=== PATIENT | female | born 1945 | race Caucasian/White ===

== ENCOUNTER 2017-03-21 15:06 | Emergency (ER) | payer MEDICARE, BC ==
[~2017-03-21] VITALS: Ht 170.2 cm; Wt 93.0 kg
[~2017-03-21 15:06] MED LIST: ASPI81TA82 PO; ATOR20TA PO; BIOT5000 PO; CALC.25 PO; CO Q100C9 PO; FA-8800C2 PO; FERR1TAB20 PO; INVE1.5T PO; MAPA500T PO; METO25 PO; PROT40TA PO; REST30CA PO; SERO300T PO; SERT100 PO; SUCR1TAB PO; SYNT137T PO; VITA20003 PO
[2017-03-21 15:33] VITALS: BP 131/63; PULSE 74; RESP 16; TEMP 98.5; O2SAT 97
[2017-03-21] MEDS ORDERED: SERO200T PO (16:14)
[2017-03-21] MEDS ORDERED: REST30CA PO (16:14)
[2017-03-21] MEDS ORDERED: LEVO.15 PO (16:14)
[2017-03-21] MEDS ORDERED: ZOLO100T PO (16:14)
[2017-03-21] MEDS ORDERED: METO25TA3 PO (16:14)
[2017-03-21] MEDS ORDERED: OMEP40CA2 PO (16:14)
[2017-03-21] MEDS ORDERED: ATOR20TA15 PO (16:14)
[2017-03-21] MEDS ORDERED: PALI1TAB PO (16:14)
[2017-03-21] MEDS ORDERED: ICOS1CAP PO (16:14)
--- NOTE | 2017-03-21 16:14 | PD ---
HPI Chief Complaint: Fall Time Seen by Provider: 15:53 Travel History International Travel<30 days: No Contact w/Intl Traveler<30days: No Traveled to known affect area: No History of Present Illness HPI This patient complains of injuries from a fall. Duration 2 hours. Symptoms severity is moderate. She tripped and fell into a glass sliding door. She struck her forehead. No LOC. She does have headache and neck pain. She also complains of pain in the right mid upper arm and left hand. Symptoms have no alleviating factors. Denies blood thinners. PFSH Past Medical History AAA: Yes (4.4cm) Arthritis: Yes Asthma: Yes Anxiety: Yes Depression: Yes Cancer: Yes (colon/thyroid) Cardiac Catheterization: Yes (2014, no stents) Chemotherapy: Yes Chest Pain: Yes Diminished Hearing: Yes (left [place]) Hypertension: Yes Radiation Therapy: Yes Renal Failure: Yes Sleep Apnea: Yes (cpap at night) Thyroid Disease: Yes ?: Not Past Surgical History Abdominal Surgery: Yes (bowel resection, lap exp x3) Appendectomy: Yes Cholecystectomy: Yes Ear Surgery: Yes (bilat mastoid) Eye Surgery: Yes (bilat cataract) Hysterectomy: Yes Joint Replacement: Yes (right knee 2011) Neurologic Surgery: Yes (lumbar) Oral Surgery: Yes (jaw) Tonsillectomy: Yes Other Surgery: Yes (thyroid) Social History Alcohol Use: No Tobacco Use: No Substance Use: No Allergies-Medications (Allergen,Severity, Reaction): Coded Allergies: No Known Allergies (Unverified , 03/21/17) Reported Meds & Prescriptions Reported Meds & Active Scripts Active Reported B12 (Cyanocobalamin) 1,000 Mcg Tab 1 Tab PO DAILY Biotin 5,000 Mcg Subl 5,000 Mcg SL DAILY Coq-10 (Coenzyme Q10 (Ubidecarenone)) 100 Mg Cap 1 Cap PO DAILY Vitamin D (Cholecalciferol) 1,000 Unit Tab 4,000 Units PO DAILY Aspirin Low Dose (Aspirin) 81 Mg Chew 81 Mg CHEW DAILY Omeprazole 40 Mg Cap 40 Mg PO DAILY Synthroid (Levothyroxine Sodium) 150 Mcg Tab 150 Mcg PO DAILY Atorvastatin (Atorvastatin Calcium) 20 Mg Tab 20 Mg PO HS Metoprolol Tartrate 25 Mg Tab 25 Mg PO BID Vascepa (Icosapent) 1 Gm Cap 1 Gm PO BID Zoloft (Sertraline HCl) 100 Mg Tab 200 Mg PO DAILY Restoril (Temazepam) 30 Mg Cap 30 Mg PO HS PRN Seroquel (Quetiapine Fumarate) 200 Mg Tab 200 Mg PO HS Paliperidone ER 1.5 Mg Tab 1.5 Mg PO HS Review of Systems General / Constitutional: No: Fever Eyes: No: Visual changes HENT: Positive: Headaches, Neck Pain Cardiovascular: No: Chest Pain or Discomfort Respiratory: No: Shortness of Breath Gastrointestinal: No: Abdominal Pain Genitourinary: No: Dysuria Musculoskeletal: Positive: Myalgias, Arthralgias, Limited ROM, Pain Skin: No Rash Neurologic: Positive: Headache, No: Weakness Psychiatric: No: Depression Endocrine: No: Polydipsia Hematologic/Lymphatic: No: Easy Bruising Physical Exam Narrative GENERAL: Well-nourished, well-developed patient with several musculoskeletal injuries . SKIN: Focused skin assessment reveals no rash and nodules. Skin is Warm and dry. HEAD: Small ecchymosis to the forehead just left of center. Normocephalic. EYES: Pupils equal and round. No scleral icterus. No injection or drainage. ENT: No nasal bleeding or discharge. Mucous membranes pink and moist. NECK: Trachea midline. No JVD. Slater collar maintained. No swelling or bruising of the neck region CARDIOVASCULAR: Regular rate and rhythm. No murmur appreciated. RESPIRATORY: No accessory muscle use. Clear to auscultation. Breath sounds equal bilaterally. GASTROINTESTINAL: Abdomen soft, non-tender, nondistended. Hepatic and splenic margins not palpable. MUSCULOSKELETAL: Has some swelling and bruising and tenderness to the left thumb. There is some tenderness to the mid right humerus without objective finding. No clubbing. No cyanosis. No edema. NEUROLOGICAL: Awake and alert. No obvious cranial nerve deficits. Motor grossly within normal limits. Normal speech. PSYCHIATRIC: Appropriate mood and affect; insight and judgment normal. Data Data Last Documented VS Vital Signs Date Time Temp Pulse Resp B/P Pulse Ox O2 Delivery O2 Flow Rate FiO2 03/21/17 17:40 68 16 154/81 96 Room Air 03/21/17 15:[address] Brain W/O Iv Contrast(Rout) (03/21/17 ) Ct Cerv Spine W/O Contrast (03/21/17 ) Humerus (Min 2vws) (03/21/17 ) Hand, Complete ([id number]) (03/21/17 ) Tetanus/Diphtheria Tox Adult (Tetanus/Di (03/21/17 18:00) MDM Medical Decision Making Medical Screen Exam Complete: Yes Emergency Medical Condition: Yes Medical Record Reviewed: Yes Differential Diagnosis Intracranial hemorrhage, cervical spine fracture, humerus fracture Narrative Course I have reviewed the patient's electronic medical record. Patient is neurologically intact. Brain CT is normal Cervical spine CT shows a bit of arthritic change but no fracture I Reviewed her right humerus x-rays which are normal I reviewed her left hand x-rays which are normal Tramadol written Recommend ice and elevation of left hand Diagnosis Primary Impression: Head injury due to trauma Qualified Code: S09.90XA - Head injury due to trauma, initial encounter Additional Impressions: Cervical strain Qualified Code: S16.1XXA - Cervical strain, initial encounter Multiple contusions Additional Instructions: The patient was advised to follow up with their physician and return if they worsen. The patient was warned about potential sedation for the medications they will receive on prescription. Med/Other Pt SpecificInfo: Prescription(s) given Disposition: 01 DISCHARGE HOME Condition: Stable Sae Leigh MD March 21, 2017 16:14
[2017-03-21] MEDS ORDERED: BIOT1SUB SL (16:17)
[2017-03-21] MEDS ORDERED: COQ-100C2 PO (16:17)
[2017-03-21] MEDS ORDERED: ASPI81CH37 CHEW (16:17)
[2017-03-21] MEDS ORDERED: VITA100064 PO (16:17)
[2017-03-21] MEDS ORDERED: CYAN1TAB24 PO (16:17)
--- NOTE | 2017-03-21 16:40 | RADHPO ---
EXAM DATE/TIME: 03/21/2017 16:21 [facility] COMPARISON: No previous studies available for comparison. INDICATIONS : Trauma. Fall. Hit head. Posterior neck pain. RADIATION DOSE: 64.48 CTDIvol (mGy) MEDICAL HISTORY : Carcinoma, colon. Renal failure, chronic. Aneurysm, abdominal. SURGICAL HISTORY : Appendectomy. Cholecystectomy.Hysterectomy.Bowel resection. ENCOUNTER: Initial ACUITY: 1 day PAIN SCALE: 4/10 LOCATION: cranial TECHNIQUE: Multiple contiguous axial images were obtained of the head. Using automated exposure control and adj ustment of the mA and/or kV according to patient size, radiation dose was kept as low as reasonably a chievable to obtain optimal diagnostic quality images. FINDINGS: CEREBRUM: The ventricles are normal for age. No evidence of midline shift, mass lesion, hemorrhage or acute in farction. No extra-axial fluid collections are seen. POSTERIOR FOSSA: The cerebellum and brainstem are intact. The 4th ventricle is midline. The cerebellopontine angle i s unremarkable. EXTRACRANIAL: The visualized portion of the orbits is intact. SKULL: The calvaria is intact. No evidence of skull fracture. CONCLUSION: Negative for acute process.. Vick Mancuso MD FACR on March 21, 2017 at 16:38 Board Certified Radiologist. This report was verified electronically.
--- NOTE | 2017-03-21 16:42 | RADHPO ---
EXAM DATE/TIME: 03/21/2017 16:15 [facility] COMPARISON: No previous studies available for comparison. INDICATIONS : Left hand, first digit pain post trip and fall. MEDICAL HISTORY : Arthritis. Aortic aneurysm SURGICAL HISTORY : None. ENCOUNTER: Initial ACUITY: 1 day PAIN SCORE: 5/10 LOCATION: Left upper extremity FINDINGS: Three view examination of the left hand demonstrates no soft tissue swelling, dislocation, or fractur e. The carpal bones appear intact. The interphalangeal and metacarpophalangeal joints are intact. Bony mineralization is normal. CONCLUSION: Negative for fracture or dislocation. Follow up in 7-10 days is suggested if symptoms persist.. Vick Mancuso MD FACR on March 21, 2017 at 16:40 Board Certified Radiologist. This report was verified electronically.
--- NOTE | 2017-03-21 16:44 | RADHPO ---
EXAM DATE/TIME: 03/21/2017 16:20 [facility] COMPARISON: No previous studies available for comparison. INDICATIONS : Entire right humerus pain post trip and fall. MEDICAL HISTORY : Arthritis. Aortic aneurysm SURGICAL HISTORY : None. ENCOUNTER: Initial ACUITY: 1 day PAIN SCORE: 8/10 LOCATION: Right upper extremity FINDINGS: There are degenerative changes at the AC joint. Humerus is intact. Alignment is anatomic. CONCLUSION: 1. Degenerative changes AC joint. 2. Negative for fracture. Vick Mancuso MD FACR on March 21, 2017 at 16:39 Board Certified Radiologist. This report was verified electronically.
--- NOTE | 2017-03-21 17:11 | RADHPO ---
EXAM DATE/TIME: 03/21/2017 16:21 [facility] COMPARISON: No previous studies available for comparison. INDICATIONS : Trauma. Fall. Hit head. Posterior neck pain. RADIATION DOSE: 26.39 CTDIvol (mGy) MEDICAL HISTORY : Carcinoma, colon. Aneurysm, abdominal. Renal failure, chronic. Thyroid cancer. SURGICAL HISTORY : Appendectomy. Cholecystectomy .Hysterectomy. Bowel resection. ENCOUNTER: Initial ACUITY: 1 day PAIN SCALE: 8/10 LOCATION: Neck TECHNIQUE: Volumetric scanning of the cervical spine was performed. Multiplanar reconstructions in the sagittal, coronal and oblique axial planes were performed. Using automated exposure control and adjustment o f the mA and/or kV according to patient size, radiation dose was kept as low as reasonably achievable to obtain optimal diagnostic quality images. FINDINGS: There are degenerative changes in the cervical spine. C2-C3: There is mild uncinate ridging present with minimal right-sided neural foraminal encroachment. C3-C4: There is mild uncinate ridging present with minimal bilateral neural foraminal encroachment. C4-C5: Moderate uncinate ridging is present with bilateral neural foraminal encroachment worse on the right than the left. C5-C6: Mild uncinate ridging is present with minimal bilateral neural foraminal encroachment. C6-C7: The bony spinal canal is normal in size. No evidence of disc bulge or herniation. The neural forami na are bilaterally patent. C7-T1: The bony spinal canal is normal in size. No evidence of disc bulge or herniation. The neural forami na are bilaterally patent. CONCLUSION: Degenerative changes as described above. There is no evidence for a fracture. Spinal stenosis is moderate at the C5-C6 level. Vick Mancuso MD FACR on March 21, 2017 at 17:04 Board Certified Radiologist. This report was verified electronically.
[2017-03-21 17:40] VITALS: BP 154/81; PULSE 68; RESP 16; O2SAT 96
[2017-03-21] MEDS ORDERED: TETANUS/DIPHTHERIA TOXOID ADULT 0.5 ML VIAL IM ONE (18:00)
[2017-03-21] MEDS ORDERED: TRAM50TA PO (18:33)
== END 2017-03-21 18:45 | disposition home or self-care (01) ==
LOC: PHED 15:06
DX: S09.90XA Unspecified injury of head, initial encounter (principal); S16.1XXA Strain of muscle, fascia and tendon at neck level, initial encounter; S60.012A Contusion of left thumb without damage to nail, initial encounter; S40.021A Contusion of right upper arm, initial encounter; I10 Essential (primary) hypertension; N19 Unspecified kidney failure; H91.92 Unspecified hearing loss, left ear; G47.30 Sleep apnea, unspecified; W01.198A Fall on same level from slipping, tripping and stumbling with subsequent striking against other object, initial encounter; Z23 Encounter for immunization; Z86.79 Personal history of other diseases of the circulatory system; Z87.39 Personal history of other diseases of the musculoskeletal system and connective tissue; Z87.09 Personal history of other diseases of the respiratory system; Z85.038 Personal history of other malignant neoplasm of large intestine; Z85.850 Personal history of malignant neoplasm of thyroid; Z86.59 Personal history of other mental and behavioral disorders
CPT/HCPCS: 70450; 72125; 73060; 73130; 90471; 90714